=== PATIENT | male | born 1965 | race Caucasian/White ===

== ENCOUNTER 2017-02-16 21:43 | Emergency (ER) | payer MEDICARE, MEDICAID ==
[~2017-02-16] VITALS: Ht 162.6 cm; Wt 58.6 kg
[2017-02-16 21:52] VITALS: BP 162/83
--- NOTE | 2017-02-17 09:11 | REP ---
RIGHT HAND, FOUR VIEWS: HISTORY: Injury. There is no acute fracture or dislocation. The joint spaces are normal in appearance. IMPRESSION: There is no acute fracture or dislocation. Signed by Zander Wells MD 02/17/2017 09:12 A
== END 2017-02-16 23:14 | disposition home or self-care (01) ==
LOC: M ED 21:43
DX: S60.041A Contusion of right ring finger without damage to nail, initial encounter (principal); Z72.0 Tobacco use; W01.198A Fall on same level from slipping, tripping and stumbling with subsequent striking against other object, initial encounter; Y92.410 Unspecified street and highway as the place of occurrence of the external cause; Y93.01 Activity, walking, marching and hiking; Y99.9 Unspecified external cause status

== ENCOUNTER 2022-11-14 15:20 | Emergency (ER) | payer MEDICARE, MEDICAID ==
[~2022-11-14] VITALS: Ht 162.6 cm; Wt 55.2 kg
[2022-11-14] MEDS ORDERED: IBUP200C25 PO (15:44)
[2022-11-14] MEDS ORDERED: METH-1164 PO (18:46)
[2022-11-14 19:03] VITALS: BP 150/70
== END 2022-11-14 19:05 | disposition home or self-care (01) ==
LOC: M ED 15:20
DX: S46.911A Strain of unspecified muscle, fascia and tendon at shoulder and upper arm level, right arm, initial encounter (principal); S13.4XXA Sprain of ligaments of cervical spine, initial encounter; X50.0XXA Overexertion from strenuous movement or load, initial encounter; Y92.89 Other specified places as the place of occurrence of the external cause; Y93.89 Activity, other specified; Y99.8 Other external cause status

== ENCOUNTER 2022-11-19 00:46 | Emergency (ER) | payer MEDICARE, MEDICAID ==
[~2022-11-19] VITALS: Ht 172.7 cm; Wt 55.8 kg
[~2022-11-19 00:46] MED LIST: IBUP200C25 PO; METH-1164 PO
[2022-11-19] MEDS ORDERED: NS 1,000 ML IV ONE (00:50)
[2022-11-19 01:01] LABS: BASO # 0.1 10^3/uL (0.0-0.2); BASO % 0.9 % (0.0-1.0); EOS # 0.5 10^3/uL (0.0-0.5); EOS % 3.6 % (0.0-3.0); HEMATOCRIT 34.8 % (42.0-52.0); HEMOGLOBIN 11.5 g/dl (13.5-17.5); LYMPH # 5.4 10^3/uL (1.5-5.0); LYMPH % 43.4 % (24.0-44.0); MEAN CORPUSCULAR HEMOGLOBIN 30.2 pg (27.0-33.0); MEAN CORPUSCULAR VOLUME 91.3 fl (80.0-96.0); MONO # 1.1 10^3/uL (0.0-0.8); MONO % 8.5 % (2.0-8.0); NEUTROPHILS # 5.4 10^3/uL (1.5-8.5); NEUTROPHILS % 43.3 % (36.0-66.0); PLATELET COUNT, AUTOMATED 453 10^3/uL (150-450); RED BLOOD COUNT 3.81 10^6/uL (4.30-6.10); WHITE BLOOD COUNT 12.4 10^3/uL (4.0-10.0)
[2022-11-19] MEDS ORDERED: CLOPIDOGREL 300 MG TAB (PLAVIX) PO STA (01:09)
[2022-11-19] MEDS ORDERED: HEPARIN DRIP 25,000 UNITS in IV 1 EA IV SCH (01:10)
[2022-11-19] MEDS ORDERED: HEPARIN SOD (PORCINE) 5000UNITS/ML 1ML VIAL/SYRINGE IV ONE (01:10)
[2022-11-19] MEDS ORDERED: AMIODARONE HCL 150 MG in IV 1 EA IV ONE (01:10)
[2022-11-19] MEDS ORDERED: AMIODARONE HCL 360 MG in IV 1 EA IV SCH (01:10)
[2022-11-19 01:29] LABS: CK-MB VALUE MASS < 1.0 NG/ML (<3.6); LIPASE 54 U/L (12-53)
[2022-11-19 01:31] LABS: ALBUMIN 3.3 G/DL (3.2-5.2); ALKALINE PHOSPHATASE 89 U/L (46-116); ALT/SGPT 18 U/L (7.0-40); AST/SGOT 24 U/L (<34); BILIRUBIN,DIRECT < 0.1 MG/DL (<0.4); BILIRUBIN,TOTAL 0.2 MG/DL (0.3-1.2); BLOOD UREA NITROGEN 14 MG/DL (9-23); CALCIUM LEVEL 9.2 MG/DL (8.5-10.1); CARBON DIOXIDE LEVEL 24 MMOL/L (20-31); CHLORIDE LEVEL 100 MMOL/L (98-107); CREATININE FOR GFR 1.21 MG/DL (0.70-1.30); GLOMERULAR FILTRATION RATE > 60.0 (>56); GLUCOSE, FASTING 151 MG/DL (60-100); POTASSIUM SERUM 3.3 MMOL/L (3.5-5.1); SODIUM LEVEL 135 MMOL/L (136-145); TOTAL PROTEIN 6.8 G/DL (5.7-8.2)
[2022-11-19 01:34] LABS: CPK CREATINE PHOSPHOKINASE 106 U/L (46-171); MB/CK RELATIVE INDEX 0.94 (< OR =4)
[2022-11-19 01:45] VITALS: BP 107/55
[2022-11-19 02:03] LABS: INR 1.01; PROTHROMBIN TIME 13.5 SECONDS (12.5-14.5)
[2022-11-19 02:04] LABS: PARTIAL THROMBOPLASTIN TIME 23.7 SECONDS (24.8-34.2)
== END 2022-11-19 01:58 | disposition short-term general hospital (02) ==
LOC: M ED 00:46
DX: I21.3 ST elevation (STEMI) myocardial infarction of unspecified site (principal); I46.2 Cardiac arrest due to underlying cardiac condition; Z79.899 Other long term (current) drug therapy
CPT/HCPCS: 36600; 71045; 80048; 80076; 82550; 82553; 82803; 83605; 83690; 84484; 85025; 85610; 85730; 87635; 93005; 93041; 96365; 96367; 96375; 99285; J0283

== ENCOUNTER 2024-09-07 14:31 | Inpatient (IN) | payer MEDICARE, MEDICAID ==
[~2024-09-07] VITALS: Ht 162.6 cm; Wt 57.8 kg
[2024-09-07] MEDS: IPRATROPIUM 0.5MG/ALBUTEROL 2.5MG INH SOL UD 3ML (DUONEB) NEB PRN (15:21)
[2024-09-07 15:47] LABS: ABG BASE EXCESS -2.3 (-2.0-2.0); ABG HCO3 21.7 MMOL/L (22.0-26.0); ABG O2 SATURATION 99.6 % (95.0-99.0); ABG PARTIAL PRESSURE CO2 33.9 mmHg (35.0-45.0); ABG PARTIAL PRESSURE O2 213.1 mmHg (75.0-100.0); ABG STANDARD HCO3 22.6 MMOL/L. (22.0-26.0); ABG TOTAL CO2 22.8 MMOL/L (23.0-31.0); ABG pH (ARTERIAL) 7.425 UNITS (7.350-7.450)
[2024-09-07] MEDS: methylPREDNISolone 125MG 2ML VIAL IV ONE (15:47)
[2024-09-07 15:49] LABS: VENOUS BASE EXCESS -1.5 (-2.0-2.0); VENOUS HCO3 24.5 MMOL/L (23.0-27.0); VENOUS O2 SATURATION 52.7 % (60.0-80.0); VENOUS PARTIAL PRESSURE CO2 47.5 mmHg (38.0-50.0); VENOUS PARTIAL PRESSURE O2 33.2 mmHg (30.0-50.0); VENOUS STANDARD HCO3 22.5 MMOL/L; VENOUS TOTAL CO2 25.9 MMOL/L (24.0-28.0)
[2024-09-07 15:53] LABS: BASO # 0.1 10^3/uL (0.0-0.2); BASO % 0.9 % (0.0-1.0); EOS # 1.3 10^3/uL (0.0-0.5); EOS % 18.9 % (0.0-3.0); HEMATOCRIT 26.8 % (42.0-52.0); HEMOGLOBIN 7.8 g/dl (13.5-17.5); LYMPH % 14.3 % (24.0-44.0); MEAN CORPUSCULAR HEMOGLOBIN 20.9 pg (27.0-33.0); MEAN CORPUSCULAR HGB CONC 29.1 g/dl (32.0-36.5); MEAN CORPUSCULAR VOLUME 71.8 fl (80.0-96.0); MONO # 0.6 10^3/uL (0.0-0.8); NEUTROPHILS % 57.6 % (36.0-66.0); PLATELET COUNT, AUTOMATED 347 10^3/uL (150-450); RED BLOOD COUNT 3.73 10^6/uL (4.30-6.10)
[2024-09-07 16:05] LABS: INR 1.01; PROTHROMBIN TIME 13.6 SECONDS (12.5-14.5)
[2024-09-07 16:22] LABS: CK-MB VALUE MASS 6.1 NG/ML (<3.6)
[2024-09-07 16:24] LABS: ALBUMIN 3.5 G/DL (3.2-5.2); ALKALINE PHOSPHATASE 82 U/L (40-129); ALT/SGPT 13 U/L (7.0-40); AST/SGOT 23 U/L (<34); BILIRUBIN,DIRECT 0.2 MG/DL (<0.4); BILIRUBIN,TOTAL 0.5 MG/DL (0.3-1.2); BLOOD UREA NITROGEN 9 MG/DL (9-23); CALCIUM LEVEL 9.1 MG/DL (8.3-10.6); CARBON DIOXIDE LEVEL 25 MMOL/L (20-31); CHLORIDE LEVEL 97 MMOL/L (98-107); CPK CREATINE PHOSPHOKINASE 225 U/L (46-171); CREATININE FOR GFR 1.05 MG/DL (0.70-1.30); DIGOXIN LEVEL < 0.1 NG/ML (0.8-2.0); GLOMERULAR FILTRATION RATE > 60.0 (>49); GLUCOSE, FASTING 107 MG/DL (74-106); MB/CK RELATIVE INDEX 2.71 (< OR =4); POTASSIUM SERUM 4.4 MMOL/L (3.5-5.1); SODIUM LEVEL 131 MMOL/L (136-145); TOTAL PROTEIN 7.3 G/DL (5.7-8.2)
[2024-09-07 16:26] LABS: THYROID STIMULATING HORMONE 2.642 uIU/ML (0.55-4.78)
[2024-09-07] MEDS ORDERED: ISOVUE-370 76% 100ML VIAL As Ordered ONE (16:30)
[2024-09-07 17:38] LABS: CK-MB VALUE MASS 5.2 NG/ML (<3.6)
[2024-09-07 17:39] LABS: MB/CK RELATIVE INDEX 2.68 (< OR =4)
[2024-09-07] MEDS ORDERED: ISOS1TAB35 PO (19:08)
[2024-09-07] MEDS ORDERED: ASPI-226 PO (19:08)
[2024-09-07] MEDS ORDERED: CLOP75TA2 PO (19:08)
[2024-09-07] MEDS ORDERED: CARV3.12 PO (19:08)
[2024-09-07] MEDS ORDERED: ATOR40TA75 PO (19:08)
[2024-09-07] MEDS ORDERED: HOME MED LIST COMPLETE! XX SCH (19:10)
[2024-09-07] MEDS ORDERED: MAALOX 30 ML SUSP *UDC PO PRN (20:00)
[2024-09-07] MEDS ORDERED: DEXTROMETHORPHAN 60MG/10ML SUSP 90ML BTL(DELSYM) PO PRN (20:00)
[2024-09-07] MEDS ORDERED: ACETAMINOPHEN 325 MG TAB PO PRN (20:00)
[2024-09-07] MEDS ORDERED: ALBUTEROL SULFATE 2.5MG/0.5ML INH NEB SOLN NEB PRN (20:00)
[2024-09-07] MEDS ORDERED: MOM 30ML SUSPENSION UDC PO PRN (20:00)
[2024-09-07] MEDS: IPRATROPIUM 0.5MG/ALBUTEROL 2.5MG INH SOL UD 3ML (DUONEB) NEB SCH (20:21)
[2024-09-07] MEDS: DOCUSATE SODIUM 100MG CAPSULE PO SCH (20:50)
[2024-09-07] MEDS: PANTOPRAZOLE 40MG TAB (PROTONIX) PO SCH (20:51)
[2024-09-07 21:16] VITALS: BP 143/72; TEMP 97.8; O2SAT 99
[2024-09-07 21:30] VITALS: BP 133/65; TEMP 98; O2SAT 99
[2024-09-07] MEDS: MAGNESIUM OXIDE 400MG TAB (MAG-OX) PO SCH (23:20)
[2024-09-08] VITALS (8 sets, daily range): BP systolic 128–145; BP diastolic 62–78; TEMP 98–98.3; O2SAT 94–99
[2024-09-08 06:25] LABS: HEMATOCRIT 32.7 % (42.0-52.0); MEAN CORPUSCULAR HEMOGLOBIN 23.3 pg (27.0-33.0); MEAN CORPUSCULAR HGB CONC 31.5 g/dl (32.0-36.5); PLATELET COUNT, AUTOMATED 290 10^3/uL (150-450); RED BLOOD COUNT 4.42 10^6/uL (4.30-6.10)
[2024-09-08 06:32] LABS: HEMOGLOBIN 10.3 g/dl (13.5-17.5)
[2024-09-08 06:43] LABS: ALBUMIN 3.1 G/DL (3.2-5.2); ALKALINE PHOSPHATASE 71 U/L (40-129); ALT/SGPT 15 U/L (7.0-40); AST/SGOT 22 U/L (<34); BILIRUBIN,TOTAL 1.9 MG/DL (0.3-1.2); BLOOD UREA NITROGEN 15 MG/DL (9-23); CARBON DIOXIDE LEVEL 24 MMOL/L (20-31); CHLORIDE LEVEL 98 MMOL/L (98-107); CREATININE FOR GFR 1.02 MG/DL (0.70-1.30); GLOMERULAR FILTRATION RATE > 60.0 (>49); GLUCOSE, FASTING 144 MG/DL (74-106); MAGNESIUM LEVEL 1.8 MG/DL (1.8-2.4); POTASSIUM SERUM 4.7 MMOL/L (3.5-5.1); SODIUM LEVEL 131 MMOL/L (136-145); TOTAL PROTEIN 6.8 G/DL (5.7-8.2)
[2024-09-08 07:18] LABS: IRON (FE) 296 UG/DL (65-175); PERCENT SATURATION 81.8 % (19.7-50.0); TOTAL IRON BINDING CAPACITY 362 UG/DL (250-425)
[2024-09-08 07:20] LABS: FERRITIN 8.8 NG/ML (10.5-307.3); FOLATE 7.56 NG/ML (>5.4); VITAMIN B12 LEVEL 581 PG/ML (211-911)
[2024-09-08] MEDS: ASPIRIN 81MG ENTERIC TABLET PO SCH (08:03)
[2024-09-08] MEDS: ATORVASTATIN 20 MG TAB PO SCH (08:04)
[2024-09-08] MEDS: predniSONE 20 MG TAB PO SCH (08:04)
[2024-09-08] MEDS: ISOSORBIDE MON. (IMDUR) 30MG XR TAB PO SCH (08:06)
[2024-09-08] MEDS: CARVedilol 3.125 MG TAB PO SCH (08:07)
[2024-09-08] MEDS ORDERED: PROT1TAB2 PO ×2 (13:22→13:29)
[2024-09-08] MEDS ORDERED: PRED20TA PO (20:19)
== END 2024-09-09 14:49 | disposition home or self-care (01) | DRG 202 ==
LOC: M ED 14:31 → M ED INP 20:00
PROVIDERS: ADMIT Internal Medicine; ATTEND Internal Medicine
PROC: 30233N1 Transfusion of Nonautologous Red Blood Cells into Peripheral Vein, Percutaneous Approach (ICD-10-PCS; principal; 2024-09-07)
DX: J20.9 Acute bronchitis, unspecified (principal); I50.32 Chronic diastolic (congestive) heart failure; D64.9 Anemia, unspecified; I25.2 Old myocardial infarction; I25.10 Atherosclerotic heart disease of native coronary artery without angina pectoris; E78.5 Hyperlipidemia, unspecified; F17.200 Nicotine dependence, unspecified, uncomplicated; Z79.82 Long term (current) use of aspirin; Z79.899 Other long term (current) drug therapy

== ENCOUNTER 2024-10-08 16:46 | Emergency (ER) | payer MEDICARE, MEDICAID ==
[~2024-10-08] VITALS: Ht 162.6 cm; Wt 57.4 kg
[~2024-10-08 16:46] MED LIST changes: +ASPI-226 PO; +ATOR40TA75 PO; +CARV3.12 PO; +CLOP75TA2 PO; +ISOS1TAB35 PO; +PRED20TA PO; +PROT1TAB2 PO
[2024-10-08 16:52] VITALS: TEMP 97.4
[2024-10-08] MEDS: OXYMETAZOLINE 0.05% NASAL SPRAY ONE (21:16)
[2024-10-08 21:28] VITALS: BP 129/81; O2SAT 99
== END 2024-10-08 21:28 | disposition home or self-care (01) ==
LOC: M ED 16:46
DX: R04.0 Epistaxis (principal); I25.2 Old myocardial infarction; Z79.1 Long term (current) use of non-steroidal anti-inflammatories (NSAID); Z79.52 Long term (current) use of systemic steroids; Z79.899 Other long term (current) drug therapy

== ENCOUNTER 2025-06-20 04:29 | Emergency (ER) | payer MEDICARE, MEDICAID ==
[~2025-06-20] VITALS: Ht 193 cm; Wt 60.0 kg
[2025-06-20 05:47] LABS: BASO # 0.1 10^3/uL (0.0-0.2); BASO % 0.8 % (0.0-1.0); EOS # 0.3 10^3/uL (0.0-0.5); EOS % 5.3 % (0.0-3.0); LYMPH # 0.9 10^3/uL (1.5-5.0); LYMPH % 15.5 % (24.0-44.0); MONO # 0.4 10^3/uL (0.0-0.8); MONO % 6.4 % (2.0-8.0); NEUTROPHILS # 4.4 10^3/uL (1.5-8.5); NEUTROPHILS % 71.8 % (36.0-66.0); PLATELET COUNT, AUTOMATED 244 10^3/uL (150-450)
[2025-06-20 06:23] LABS: ALT/SGPT 10.0 U/L (7.0-40); AST/SGOT 32.0 U/L (<34); CALCIUM LEVEL 8.2 MG/DL (8.3-10.6); CARBON DIOXIDE LEVEL 26.0 MMOL/L (20-31); CHLORIDE LEVEL 94.0 MMOL/L (98-107); CK-MB VALUE MASS 14.5 NG/ML (<3.6); CREATININE FOR GFR 1.31 MG/DL (0.70-1.30); GLOMERULAR FILTRATION RATE 61.5 (>49); POTASSIUM SERUM 3.5 MMOL/L (3.5-5.1); SODIUM LEVEL 129.0 MMOL/L (136-145)
[2025-06-20 06:26] LABS: CPK CREATINE PHOSPHOKINASE 332.0 U/L (46-171); MB/CK RELATIVE INDEX 4.36 (< OR =4)
[2025-06-20 07:14] LABS: CK-MB VALUE MASS 16.1 NG/ML (<3.6)
[2025-06-20 07:23] LABS: CPK CREATINE PHOSPHOKINASE 362.0 U/L (46-171); MB/CK RELATIVE INDEX 4.44 (< OR =4)
[2025-06-20] MEDS ORDERED: ISOVUE-370 76% 100 ML VIAL As Ordered ONE (08:04)
[2025-06-20] MEDS: OSELTAMIVIR PHOSPHATE 75 MG CAP PO ONE (08:15)
[2025-06-20] MEDS: ASPIRIN 81 MG CHEWABLE TABLET PO ONE (10:35)
[2025-06-20 10:36] VITALS: BP 139/72
[2025-06-20] MEDS: CLOPIDOGREL 75 MG TAB PO ONE (10:36)
[2025-06-20] MEDS: PANTOPRAZOLE 40MG TAB PO ONE (10:36)
[2025-06-20] MEDS: ISOSORBIDE MONONITRATE 30 MG XR TAB PO ONE (10:36)
[2025-06-20] MEDS: ATORVASTATIN 20 MG TAB PO ONE (10:36)
[2025-06-20 11:16] VITALS: BP 141/73; TEMP 98.6; O2SAT 96
== END 2025-06-20 11:18 | disposition short-term general hospital (02) ==
LOC: EDBD 04:29 → M ED 04:29
DX: I21.4 Non-ST elevation (NSTEMI) myocardial infarction (principal); J09.X2 Influenza due to identified novel influenza A virus with other respiratory manifestations; K80.20 Calculus of gallbladder without cholecystitis without obstruction; I45.10 Unspecified right bundle-branch block; I50.22 Chronic systolic (congestive) heart failure; I25.119 Atherosclerotic heart disease of native coronary artery with unspecified angina pectoris; I25.2 Old myocardial infarction; E78.5 Hyperlipidemia, unspecified; Z87.891 Personal history of nicotine dependence; Z79.1 Long term (current) use of non-steroidal anti-inflammatories (NSAID); Z79.899 Other long term (current) drug therapy
CPT/HCPCS: 36415; 71045; 71275; 80048; 80076; 82550; 82553; 83880; 84484; 85025; 87486; 87581; 87633; 87798; 93005; 93041; 94760; 99285; Q9967